=== PATIENT | male | born 1950 | race Caucasian/White ===

== ENCOUNTER 2019-04-17 05:15 | Day surgery (SDC) | payer MEDICARE, OTHER ==
[2019-04-17] MEDS ORDERED: TROP 1%/CYCLOPEN 1%/PHENYL 2% DROPS ONE (10:42)
[2019-04-17] MEDS ORDERED: PROPARACAINE 0.5% OPHTH SOL 15 ML BTTL ONE (10:42)
[2019-04-17] MEDS ORDERED: MIDAZOLAM INJ 2 MG/2 ML VIAL ONE (12:11)
[2019-04-17] MEDS ORDERED: PROPARACAINE 0.5% OPHTH SOL 15 ML BTTL LEFT_EYE ONE (12:12)
[2019-04-17] MEDS ORDERED: LIDOCAINE 1% MPF 2 ML VIAL INJ ONE (12:23)
[2019-04-17] MEDS ORDERED: MOXIFLOXACIN HCL (OPHTH) 1 DROP DROPS LEFT_EYE ONE ×2 (12:23→12:37)
[2019-04-17] MEDS ORDERED: DEXAMETHASONE 0.1% OPHTH SOL 1 DROP LEFT_EYE ONE ×2 (12:23→12:38)
[2019-04-17] MEDS ORDERED: TOBRAMYCIN SULF 0.3 % OPHT SOL 1 DROP LEFT_EYE ONE ×2 (12:24→12:38)
[2019-04-17] MEDS ORDERED: BRIMONIDINE 0.2% OPHTH DROPS LEFT_EYE ONE ×2 (12:24→12:38)
== END 2019-04-17 13:14 | disposition home or self-care (01) ==
LOC: AMB 05:15
PROVIDERS: ATTEND Ophthalmology
DX: H25.12 Age-related nuclear cataract, left eye (principal); E11.36 Type 2 diabetes mellitus with diabetic cataract; I10 Essential (primary) hypertension; Z88.0 Allergy status to penicillin; Z79.82 Long term (current) use of aspirin; Z79.4 Long term (current) use of insulin; Z79.899 Other long term (current) drug therapy
CPT/HCPCS: 00142; 66984; J2250

== ENCOUNTER 2019-05-01 05:33 | Day surgery (SDC) | payer MEDICARE, OTHER ==
[2019-05-01] MEDS ORDERED: PROPARACAINE 0.5% OPHTH SOL 15 ML BTTL ONE (05:52)
[2019-05-01] MEDS ORDERED: TROP 1%/CYCLOPEN 1%/PHENYL 2% DROPS ONE (05:52)
[2019-05-01] MEDS ORDERED: MOXIFLOXACIN HCL (OPHTH) 1 DROP DROPS ONE (05:52)
[2019-05-01] MEDS ORDERED: MIDAZOLAM INJ 2 MG/2 ML VIAL ONE (08:08)
[2019-05-01] MEDS ORDERED: PROPARACAINE 0.5% OPHTH SOL 15 ML BTTL RIGHT_EYE ONE (08:10)
[2019-05-01] MEDS ORDERED: TOBRAMYCIN SULF 0.3 % OPHT SOL 1 DROP RIGHT_EYE ONE ×2 (08:20→08:34)
[2019-05-01] MEDS ORDERED: BRIMONIDINE 0.2% OPHTH DROPS RIGHT_EYE ONE ×3 (08:20→08:35)
[2019-05-01] MEDS ORDERED: DEXAMETHASONE 0.1% OPHTH SOL 1 DROP RIGHT_EYE ONE ×2 (08:20→08:34)
[2019-05-01] MEDS ORDERED: MOXIFLOXACIN HCL (OPHTH) 1 DROP DROPS RIGHT_EYE ONE ×2 (08:20→08:33)
[2019-05-01] MEDS ORDERED: LIDOCAINE 1% MPF 2 ML VIAL INJ ONE (08:22)
== END 2019-05-01 09:15 | disposition home or self-care (01) ==
LOC: AMB 05:33
PROVIDERS: ATTEND Ophthalmology
DX: E11.36 Type 2 diabetes mellitus with diabetic cataract (principal); H25.11 Age-related nuclear cataract, right eye; I10 Essential (primary) hypertension; Z88.0 Allergy status to penicillin; Z79.82 Long term (current) use of aspirin; Z79.4 Long term (current) use of insulin; Z79.899 Other long term (current) drug therapy
CPT/HCPCS: 00142; 36416; 66984; 82948; J2250

== ENCOUNTER → 2019-05-03 | Outpatient (CLI) | payer MEDICARE, OTHER | LOC: GMAL 12:29 | PROVIDERS: ATTEND Family Medicine | DX: E53.8 Deficiency of other specified B group vitamins (principal); E11.9 Type 2 diabetes mellitus without complications; R53.83 Other fatigue; E55.9 Vitamin D deficiency, unspecified; Z12.5 Encounter for screening for malignant neoplasm of prostate; Z79.899 Other long term (current) drug therapy | CPT/HCPCS: 82306; 82607; 84443; G0103 ==

== ENCOUNTER → 2019-06-29 | Outpatient (CLI) | payer MEDICARE, OTHER ==
--- NOTE | 2019-06-29 18:17 | US ---
EXAM DESCRIPTION: Gall Bladder: ULTRASOUND. CLINICAL HISTORY: ABD PAIN COMPARISON: Abdomen x-ray June 14. TECHNIQUE: Transabdominal scanning: Man-scale and Doppler modes.. Technically difficult study due to patient body habitus. FINDINGS: Gallbladder: normal size, shape, echogenicity; no intraluminal stones or sludge. Visualization not optimal due to patient body habitus. No fluid around the gallbladder. No wall thickening. 1.9 mm. Non-tender with transducer pressure. Common bile duct: caliber 5.6 mm within normal limits. Liver: Increased echogenicity; contour liver capsule smooth where seen. Left lobe not as well seen due to patient body habitus. No fluid around the liver. Intrahepatic biliary ducts normal caliber. Doppler hepatopedal flow portal vein, caliber 11 mm.. Long axis right lobe 14.6 cm. Pancreas: normal size Normal echogenicity. Duct not seen. Aorta: 2.1 cm. Normal caliber. Minimal wall calcification. Right kidney: 11.4 cm long axis. Normal cortical thickness and echogenicity. Minimally lobulated capsule. No echogenic stone or hydronephrosis. IMPRESSION: 1. Steatosis of the liver which is heterogeneous with liver not enlarged. Left lobe not well seen due to patient body habitus. Physiologic vascularity and normal caliber of the ducts. No focal lesion. Smooth capsule with no ascites. Pancreas is unremarkable. 2. Gallbladder evaluation not optimal due to patient body habitus and intestinal gas shadowing. No intraluminal stones or sludge. No wall thickening or fluid. Nontender with transducer pressure. Normal caliber of the common bile duct. 3. Age-related changes in the right kidney, mostly capsular lobulation. Aorta normal caliber with atherosclerotic changes. Electronically signed by: Tre Retana MD 06/29/2019 6:15 PM CSR TECHNICIAN
== END ==
LOC: US 07:50
PROVIDERS: ATTEND Family Medicine
DX: K76.0 Fatty (change of) liver, not elsewhere classified (principal); N28.89 Other specified disorders of kidney and ureter; I70.0 Atherosclerosis of aorta

== ENCOUNTER → 2019-08-18 | Outpatient (CLI) | payer MEDICARE, OTHER | LOC: GMAL 12:46 | PROVIDERS: ATTEND Family Medicine | DX: E03.9 Hypothyroidism, unspecified (principal); I10 Essential (primary) hypertension; E11.9 Type 2 diabetes mellitus without complications; Z79.899 Other long term (current) drug therapy ==

== ENCOUNTER → 2019-08-23 | Outpatient (CLI) | payer MEDICARE, OTHER | LOC: ECHO 10:00 | PROVIDERS: ATTEND Family Medicine | DX: I50.30 Unspecified diastolic (congestive) heart failure (principal); I31.3 Pericardial effusion (noninflammatory); I51.7 Cardiomegaly ==

== ENCOUNTER 2019-09-22 | Emergency (ER) | payer MEDICARE, OTHER | END 2019-09-22 20:05 | disposition home or self-care (01) | DX: K52.9 Noninfective gastroenteritis and colitis, unspecified (principal); I10 Essential (primary) hypertension; E11.9 Type 2 diabetes mellitus without complications; E78.00 Pure hypercholesterolemia, unspecified; I25.2 Old myocardial infarction; F17.200 Nicotine dependence, unspecified, uncomplicated | CPT/HCPCS: 71045; 74177; 80053; 81001; 83605; 83690; 84484; 85025; 85610; 85730; 93005; J2270; J2405; J7030 ==

== ENCOUNTER → 2020-04-09 | Outpatient (CLI) | payer MEDICARE, OTHER ==
--- NOTE | 2020-04-10 10:48 | MRI ---
EXAM DESCRIPTION: Cervical Spine: MRI. 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 TECHNIQUE: Multiplanar, high-field MRI, multiple sequences, non-contrast Cervical spine. FINDINGS: C2-C3: Normal signal in the disc and disc space. Hypertrophic arthrosis left facet with mild narrowing of the left neural foramen. Minimally thickened posterior ligaments. Canal and right neuroforamen patent. C3-C4: Normal signal in the disc with disc space preserved. Grade 1 anterolisthesis. Posterior disc abutting the anterior cord. Bilateral uncinate spurs. Mild narrowing of the right neuroforamen. Moderate hypertrophic arthrosis left facet. Left neural foraminal stenosis. Mild narrowing of the canal. C4-C5: Normal signal in the disc with disc space preserved. Mild bilateral facet arthrosis and hypertrophy. Small bilateral uncinate spurs. Bilateral moderate to severe neural foraminal narrowing. Posterior ligament hypertrophy. Mild canal narrowing. C5-C6: Disc desiccation moderate disc space loss, anterior bulging and endplate ridging. 2 mm retrolisthesis with disc osteophyte bulge abutting the cord. Bilateral uncinate spurs. Minimally thickened posterior ligaments. Facet joints are unremarkable. Moderate canal narrowing. Bilateral neural foraminal stenosis. C6-C7: Disc desiccation and disc space maintained. Tiny posterior bulge. Small right uncinate spur and moderate neural foraminal narrowing. Joints are negative. Normal signal in the C7-T1 disc and T1-2 disc with no bulging. Disc spaces preserved. Canal and neural foramina are patent. Facet joints unremarkable. Spinal alignment kyphosis C3-C5. No cord compression or cord edema. Atlantoaxial joint minimal arthrosis and hypertrophy.. Base of the cerebellar tonsils is above the foramen magnum. Paravertebral soft tissues negative. Vertebral bodies are not compressed at any level. Normal marrow signal in the remaining vertebral bodies and the posterior elements. IMPRESSION: 1. Multiple levels desiccated discs, uncinate spurs, hypertrophic facet arthrosis. 2. Hypertrophic left L3-L4 facet and bilateral uncinate spurs with left neural foraminal stenosis. Correlate for left L4 radiculopathy. 3. Bilateral uncinate spurs C4-C5 with bilateral moderate to severe neural foraminal narrowing. 4. C5-C6 retrolisthesis. Hypertrophic changes in the facets and posterior ligaments. Bilateral neural foraminal stenosis. Correlate for bilateral C6 radiculopathy. 5. Please refer to FINDINGS for discussion of results at other disc space levels. Electronically signed by: Tre Retana MD 04/10/2020 10:47 AM CDT
== END ==
LOC: MRI 08:57
PROVIDERS: ATTEND Psychiatry & Neurology Neurology
DX: M50.122 Cervical disc disorder at C5-C6 level with radiculopathy (principal); M50.123 Cervical disc disorder at C6-C7 level with radiculopathy; M47.22 Other spondylosis with radiculopathy, cervical region; M43.12 Spondylolisthesis, cervical region; M46.92 Unspecified inflammatory spondylopathy, cervical region; M25.78 Osteophyte, vertebrae; M48.02 Spinal stenosis, cervical region; M51.16 Intervertebral disc disorders with radiculopathy, lumbar region

== ENCOUNTER → 2020-04-10 | Outpatient (CLI) | payer MEDICARE, OTHER ==
--- NOTE | 2020-04-10 11:17 | MRI ---
EXAM DESCRIPTION: Lumbar Spine w/o Contrast : Magnetic Resonance Imaging. CLINICAL HISTORY: LUMBAR RADICULOPATHY COMPARISON: MRI scan cervical spine on the same visit. Lumbar radiographs May 2019. CT scan of the abdomen and pelvis with IV contrast September 2019. TECHNIQUE: Multiplanar, multiple standard sequences, non contrast MRI, lumbar spine. FINDINGS: L5-S1: The disc is well visualized on axial T2 series 501, image 8. Moderate to severe disc space loss more on the right than midline, with endplate Schmorl's nodes and moderate reactive changes. Disc spur complex encroaching on the right foramen and the exiting right L5 nerve. Minimal disc space loss on the left with minimal narrowing of the left foramen. Posterior midline protrusion of the disc with bilateral narrowing of the subarticular recesses. Mild canal narrowing. Facet joints and posterior flavum ligaments (canal elements) are unremarkable. S1 vertebra is transitional and partially lumbarized. S1 - 2 disc space is rudimentary with an existing disc which is not bulging or herniated. Canal and foramina are sacralized. L4-L5: Disc desiccation with posterior broad-based small bulge. Hyperintense T2 weighted annular fissure in the posterior left disc margin. Mild hypertrophic changes in the canal elements. AP canal diameter 10 mm. Bilateral disc bulge into the foramina with mild narrowing on the left and moderate to severe narrowing on the right. L3-L4: Normal signal in the disc with disc space preserved. No bulging. Minimal hypertrophy of the canal elements and minimal canal narrowing. Mild narrowing of the left foramen and right foramen is patent. L2-L3: Normal signal in the disc with disc space preserved. No bulging. Minimal hypertrophy of the canal elements. Canal and bilateral foramina are patent. L1-L2: Disc desiccation with anterior bulging and endplate ridging. Minimal disc space loss. No posterior bulge. Hypertrophic changes in the canal elements more on the left. Canal and foramina are patent. T12-L1: Normal signal in the disc with disc space preserved. Canal elements unremarkable. No foraminal and canal are patent. Conus terminates at this level. No scoliosis or significant spondylolisthesis Paravertebral soft tissues negative. Distal cord normal signal and caliber. Otherwise normal marrow signal in the remaining vertebral bodies and the posterior elements. Vertebral bodies are not compressed at any level. IMPRESSION: 1. L5-S1 moderate to severe spondylosis in the midline into the right of midline with right foraminal stenosis and compromise of the exiting right L5 nerve. Posterior midline disc protrusion. S1 sacral segment is transitional and partially lumbarized. This can be correlated with appearance on abdominal pelvic CT scan and lumbosacral spine radiographs. 2. Bulge at L4-5 disc with left posterior annular fissure. Borderline mild central canal stenosis. Moderate to severe narrowing on the right. Correlate for right L4 nerve compromise. 3. Please refer to FINDINGS for discussion of results at other disc space intervals. Electronically signed by: Tre Retana MD 04/10/2020 11:15 AM CDT
== END ==
LOC: MRI 09:00
PROVIDERS: ATTEND Psychiatry & Neurology Neurology
DX: M51.16 Intervertebral disc disorders with radiculopathy, lumbar region (principal); M47.27 Other spondylosis with radiculopathy, lumbosacral region; M50.122 Cervical disc disorder at C5-C6 level with radiculopathy; M48.061 Spinal stenosis, lumbar region without neurogenic claudication

== ENCOUNTER → 2020-05-06 | Outpatient (CLI) | payer MEDICARE, OTHER | LOC: GMAL 10:33 | PROVIDERS: ATTEND Family Medicine | DX: E53.8 Deficiency of other specified B group vitamins (principal); E55.9 Vitamin D deficiency, unspecified ==

== ENCOUNTER → 2020-07-23 | Outpatient (CLI) | payer MEDICARE, OTHER | LOC: GMAL 10:53 | PROVIDERS: ATTEND Family Medicine | DX: E53.8 Deficiency of other specified B group vitamins (principal); Z79.899 Other long term (current) drug therapy; E11.9 Type 2 diabetes mellitus without complications; E78.2 Mixed hyperlipidemia ==